=== PATIENT | female | born 1980 | race Caucasian/White ===

== ENCOUNTER 2016-12-20 11:31 | Emergency (ER) | payer OTHER ==
[2016-12-20 11:11] LABS: URINE SOURCE CLEAN CATCH
[2016-12-20 11:13] LABS: URINE APPEARANCE CLEAR; URINE BILIRUBIN POS (NEG); URINE BLOOD 3+ (NEG); URINE COLOR YELLOW; URINE GLUCOSE NEG (NORM); URINE KETONE TRACE (NEG); URINE LEUKOCYTE ESTERASE TRACE (NEG); URINE NITRATE NEG (NEG); URINE PROTEIN 1+ (NEG); URINE SPECIFIC GRAVITY 1.025 (1.003-1.035); URINE UROBILINOGEN >=8.0 MG/DL (NORM)
[2016-12-20 11:16] LABS: MICRO INDICATED? YES
[2016-12-20 11:28] LABS: CULTURE INDICATED? YES; URINE BACTERIA 1+ (NEG); URINE SQUAMOUS EPITHELIAL CELL MODERATE /[HPF]
[~2016-12-20 11:31] MED LIST: BENZONATATE PO; ESCITALOPRAM OX10 MG PO; FERRO-TIME325 MG; FLEXERIL10 M1 PO; FLEXERIL10 MG PO; GABAPENTIN300 M2 PO; HYDROCHLOROTH12.5 M1 PO; IBUPROFEN PO; IBUPROFEN800 MG PO; ILOTYCIN1 G1 OP; LEXAPRO PO; LISINOPRIL10 MG PO; LORTAB 7.5-5001 TAB PO; MACRODANTIN PO; MIRALAX17 GM PO; MOTRIN600 MG; NORCO 5/325 TAB1 TAB PO; PERCOCET PO; PHENERGAN PO; PREDNISONE PO; SUBOXONE 8 MG-1 EAC1 SL; TAMIFLU75 M1 PO; TOPAMAX50 MG PO; ZOFRAN ODT4 MG/UDTAB PO
[2016-12-20] MEDS ORDERED: ZOFRAN ODT4 MG PO (11:44)
[2016-12-20] MEDS ORDERED: BACTRIM DS TABL1 TA1 PO (11:44)
[2016-12-20] MEDS ORDERED: DOCUSATE SODIU100 MG PO (11:53)
[2016-12-20] MEDS ORDERED: MIRALAX17 GM PO (11:53)
== END 2016-12-20 11:49 | disposition home or self-care (01) ==
LOC: SED 11:31
PROVIDERS: Emergency Medicine
DX: N30.00 Acute cystitis without hematuria (principal); K29.00 Acute gastritis without bleeding; F17.210 Nicotine dependence, cigarettes, uncomplicated; Z79.899 Other long term (current) drug therapy
CPT/HCPCS: 81003; 84703; 87086; 99284

== ENCOUNTER 2017-05-06 09:42 | Emergency (ER) | payer OTHER ==
[~2017-05-06] VITALS: Ht 160 cm; Wt 72.6 kg
--- NOTE | ~2017-05-06 | CT2 ---
[facility] A Service of [facility] RADIOLOGY TEXT RESULTS PATIENT: MARIAA SHAW LOCATION: SED : 78 UNIT #: [id number] AGE: [address]: VALENTIN LI SEX: F ORDER DR: [id number] [address] [id number] MR#: [id number] Acc #: [id number] NAME: MARIAA SHAW. : 1980 SEX: F STUDY DATE/TIME: 05/06/2017 12:29 UNIT: SED ROOM: STUDY DESCRIPTION: CT Abd and Pelv W Cont Ordering Physician: [facility] Primary Care Physician: Gordon Wilson M.D. MEDICAL IMAGING REPORT This report is preliminary unless electronic signature is present. EXAM CT abdomen and pelvis INDICATIONS Upper abdominal pain and vomiting for 1 day. Epigastric abdominal pain. TECHNIQUE CT of the abdomen and pelvis with 100 mL Isovue-370 IV contrast. Coronal and sagittal reconstructions were obtained. This CT exam was performed with one or more of the following radiation dose reduction techniques: automatic exposure control, adjustment of mA and/or kV according to patient size, and iterative reconstruction. COMPARISON CT abdomen and pelvis 12/26/2014. FINDINGS There is mild intrahepatic biliary dilatation. The common duct is mildly enlarged measuring 9 mm at the luther hepatis. The gallbladder is mildly distended. There is gradual tapering of the common bile duct to the level of the pancreatic head/ampulla. No distal obstructing mass or lesion is identified. Pancreatic duct is normal in caliber. No pancreatic inflammation. Spleen, adrenal glands are within normal limits. There is some mild cortical scarring involving the left kidney. The bowel is not dilated. Small umbilical hernia. The appendix is normal. Bowel is not dilated. PELVIS: The uterus and ovaries are unremarkable. No enlarged pelvic or inguinal lymph nodes. The bladder is within normal limits. [facility] A Service of [facility] RADIOLOGY TEXT RESULTS PATIENT: MARIAA SHAW LOCATION: SED : 78 UNIT #: [id number] AGE: [address]: VALENTIN LI SEX: F ORDER DR: No acute osseous abnormalities. Hyperdense material within the gallbladder likely represents some non-radiopaque gallstones. IMPRESSION 1. Mild intrahepatic and extrahepatic biliary dilatation and mild distension of the gallbladder. No distal obstructing mass or lesion identified in the common bile duct or the pancreatic head/ampulla. I would recommend correlation with liver function tests. There is laboratory evidence of biliary obstruction, consider further evaluation with MRCP or ERCP. Dictated by... Jaime Contreras M.D. THIS IS AN ELECTRONICALLY VERIFIED REPORT Jaime Contreras M.D. at 05/07/2017 5:11 PM MYA/james TD: 05/06/2017 16:15 JOB #: [id number] MEDICAL IMAGING REPORT Page 1 of 1
[~2017-05-06 09:42] MED LIST changes: +BACTRIM DS TABL1 TA1 PO; +DOCUSATE SODIU100 MG PO; +ZOFRAN ODT4 MG PO
[2017-05-06 11:49] LABS: BASOPHIL% 0.6 % (0-2.5); EOSINOPHIL# 0.1 X10e3 (0-0.7); HEMATOCRIT 39.8 % (35.0-45.0); LYMPHOCYTE# 1.4 X10e3 (1.0-3.5); LYMPHOCYTE% 20.1 % (17.0-45.0); MEAN CORPUSCULAR HEMOGLOBIN 30.1 PG (28-34); MEAN CORPUSCULAR HGB CONC 32.7 g/dL (30-36); MEAN PLATELET VOLUME 8.2 FL (6.5-11.5); MONOCYTE# 0.3 X10e3 (0-1.0); MONOCYTE% 4.6 % (3.0-12.0); NEUTROPHIL% 73.7 % (40-75); PLATELET COUNT 262 X10e3 (140-420); RED BLOOD COUNT 4.32 X10e (3.90-5.30); RED CELL DISTRIBUTION WIDTH 13.9 % (11.0-15.5); WHITE BLOOD COUNT 6.7 X10e3 (4.0-10.5)
[2017-05-06 11:49] LABS: URINE SOURCE CLEAN CATCH
[2017-05-06 11:50] LABS: DIFF IND NO
[2017-05-06 11:50] LABS: MICRO INDICATED? NO; URINE APPEARANCE CLEAR; URINE BILIRUBIN NEG (NEG); URINE BLOOD NEG (NEG); URINE COLOR YELLOW; URINE GLUCOSE NEG (NORM); URINE KETONE NEG (NEG); URINE LEUKOCYTE ESTERASE NEG (NEG); URINE NITRATE NEG (NEG); URINE PROTEIN NEG (NEG); URINE SPECIFIC GRAVITY >=1.030 (1.003-1.035); URINE UROBILINOGEN 0.2 MG/DL (NORM)
[2017-05-06 12:06] LABS: ALBUMIN SERUM 4.6 g/dL (3.5-5.0); ALKALINE PHOSPHATASE 52 U/L (32-92); ALT (SGPT) 17 U/L (10-40); AMYLASE 26 U/L (0-46); AST (SGOT) 20 U/L (10-42); BILIRUBIN,TOTAL 0.2 mg/dL (0.2-2.0); BLOOD UREA NITROGEN 16 mg/dL (9-23); BUN/CREATININE RATIO 22.85; CALCIUM SERUM 8.7 mg/dL (8.4-10.2); CARBON DIOXIDE 26 mmol/L (22-31); CHLORIDE 102 mmol/L (100-111); CREATININE SERUM 0.7 mg/dL (0.6-1.4); GLOM FILT RATE Estimated 110.7 mL/min (>60); GLUCOSE FASTING 118 mg/dL (70-110); LIPASE 37 U/L (22-51); POTASSIUM 3.9 mmol/L (3.5-5.1); PROTEIN TOTAL SERUM 7.7 g/dL (6.0-8.3); SODIUM 135 mmol/L (135-145)
[2017-05-06 12:12] LABS: BILIRUBIN, DIRECT <0.1 mg/dL (0.0-0.2); BILIRUBIN,INDIRECT 0.1 mg/dL (0.0-0.9)
== END 2017-05-06 13:23 | disposition home or self-care (01) ==
LOC: SED 09:42
PROVIDERS: Physician Assistant
DX: K80.50 Calculus of bile duct without cholangitis or cholecystitis without obstruction (principal); G43.909 Migraine, unspecified, not intractable, without status migrainosus; F17.210 Nicotine dependence, cigarettes, uncomplicated; Z79.899 Other long term (current) drug therapy
CPT/HCPCS: 36415; 74177; 80048; 80076; 81003; 82150; 83690; 84703; 85025; 96372; 96374; 96375; 99284; C9113; J1885; J2405; J2550; Q9967